=== PATIENT | male | born 1960 | race Caucasian/White ===

== ENCOUNTER 2016-07-14 09:32 | Outpatient (CLI) | payer OTHER ==
[2016-07-14 12:31] LABS: #Basophils 0.1 thou/uL (0.0-0.2); #Eosinphils 0.4 thou/uL (0.0-0.7); #Lymphocytes 2.4 thou/uL (1.20-3.40); #Monocytes 0.6 thou/uL (0.11-0.59); #Neutrophils 4.3 thou/uL (1.40-6.50); %Basophils 0.9 % (0.0-1.0); %Eosinophils 4.8 % (0.0-10.0); %Monocytes 7.9 % (0.0-10.0); Mean Platelet Volume 8.5 fL (7.4-10.4); Red Blood Cell (RBC) Count 5.31 mill/uL (4.70-6.10); White Blood Cell (WBC) Count 7.8 thou/uL (4.8-10.8)
[2016-07-14 12:48] LABS: ALT (SGPT) 55 U/L (0-55); AST (SGOT) 39 U/L (5-34); Alkaline Phosphatase 45 U/L (40-150); Anion Gap 19 mmol/L (10-20); BUN (Urea Nitrogen) 13 mg/dL (8.4-25.7); Bilirubin, Total 0.6 mg/dL (0.2-1.2); Calc. Creatinine Clearance 0 mL/min (70-130); Calcium 9.7 mg/dL (7.8-10.44); Carbon Dioxide 22 mmol/L (22-29); Chloride 100 mmol/L (98-107); Estimated GFR-MDRD 56; Globulin 2.7 g/dL (2.4-3.5); Protein, Total 7.1 g/dL (6.0-8.3)
[2016-07-14 13:10] LABS: Hemoglobin A1c 9.6 % (4.0-6.0)
[2016-07-14 13:25] LABS: Bilirubin Negative (Negative); Blood, Urine Negative (Negative); Glucose, Urine (Dipstick) Negative (Negative); Ketone, Urine Negative (Negative); Nitrite Negative (Negative); Protein, Urine (Dipstick) 100 mg/dL (Neg-Trace); Urobilinogen 0.2 mg/dL (0.2-1.0)
[2016-07-14 13:59] LABS: Bacteria/HPF 2+ HPF (None Seen); RBC/HPF None Seen HPF (0-3); Squamous Epithelial 0-3 HPF (0-3); WBC/HPF 0-3 HPF (0-3)
[2016-07-14 18:33] LABS: Microalbumin Urine 23.9 mg/dL (0.5-50.0)
== END 2016-07-14 09:33 | disposition home or self-care (01) ==
LOC: NAVSJIPCSP 09:32
PROVIDERS: ATTEND Internal Medicine
DX: Z12.5 Encounter for screening for malignant neoplasm of prostate (principal); E78.5 Hyperlipidemia, unspecified; I11.9 Hypertensive heart disease without heart failure; E11.40 Type 2 diabetes mellitus with diabetic neuropathy, unspecified; Z79.899 Other long term (current) drug therapy
CPT/HCPCS: 36415; 80053; 80061; 81003; 81015; 82043; 83036; 85025; G0103

== ENCOUNTER 2016-10-21 08:25 | Outpatient (CLI) | payer OTHER ==
[2016-10-21 12:40] LABS: Hemoglobin A1c 7.4 % (4.0-6.0)
[2016-10-21 13:01] LABS: Cardiac Risk 6.6 (Less than 4.5); Cholesterol 145 mg/dl (< 200 Desired); HDL Cholesterol 22 mg/dL (>60 Neg Risk); Triglycerides 441 mg/dL (Less than 150)
== END 2016-10-21 08:26 ==
LOC: NAVSJIPCSP 08:25
PROVIDERS: ATTEND Internal Medicine
DX: E78.5 Hyperlipidemia, unspecified (principal); E11.40 Type 2 diabetes mellitus with diabetic neuropathy, unspecified; Z79.899 Other long term (current) drug therapy
CPT/HCPCS: 36415; 80061; 83036

== ENCOUNTER 2017-01-24 10:22 | Outpatient (CLI) | payer OTHER ==
[2017-01-24 12:51] LABS: Hemoglobin A1c 9.5 % (4.0-6.0)
[2017-01-24 13:08] LABS: Cardiac Risk 6.1 (Less than 4.5); Cholesterol 158 mg/dl (< 200 Desired); HDL Cholesterol 26 mg/dL (>60 Neg Risk); Triglycerides 594 mg/dL (Less than 150)
== END 2017-01-24 10:23 | disposition home or self-care (01) ==
LOC: NAVSJIPCSP 10:22
PROVIDERS: ATTEND Internal Medicine
DX: E11.9 Type 2 diabetes mellitus without complications (principal); I11.9 Hypertensive heart disease without heart failure; E78.5 Hyperlipidemia, unspecified
CPT/HCPCS: 36415; 80061; 83036

== ENCOUNTER 2019-02-06 23:47 | Emergency (ER) | payer OTHER ==
[2019-02-07] MEDS ORDERED: Sodium Chloride 0.9% 1,000 ML ONE (00:19)
[2019-02-07 00:20] LABS: #Basophils 0.1 thou/uL (0.0-0.2); #Eosinphils 0.2 thou/uL (0.0-0.7); #Lymphocytes 2.4 thou/uL (1.20-3.40); #Monocytes 0.9 thou/uL (0.11-0.59); #Neutrophils 8.8 thou/uL (1.40-6.50); %Eosinophils 1.7 % (0.0-10.0); %Lymphocytes 19.4 % (21.0-51.0); %Neutrophils 70.9 % (42.0-75.0); Hemoglobin 15.1 g/dL (14.0-18.0); Mean Corpuscular HGB CONC 32.1 g/dL (32.0-36.0); Mean Corpuscular Hemoglobin 26.3 pg (27.0-31.0); Mean Corpuscular Volume 81.9 fL (78.0-98.0); Mean Platelet Volume 7.6 fL (7.4-10.4); Platelet Count 260 thou/uL (130-400); RBC Distribution Width 13.7 % (11.5-14.5); Red Blood Cell (RBC) Count 5.73 mill/uL (4.70-6.10); White Blood Cell (WBC) Count 12.4 thou/uL (4.8-10.8)
[2019-02-07 00:39] LABS: ALT (SGPT) 44 U/L (8-55); AST (SGOT) 25 U/L (5-34); Albumin 4.5 g/dL (3.5-5.0); Alkaline Phosphatase 45 U/L (40-150); Anion Gap 18 mmol/L (10-20); BUN (Urea Nitrogen) 19 mg/dL (8.4-25.7); Bilirubin, Total 0.3 mg/dL (0.2-1.2); Calc. Creatinine Clearance 0 mL/min (70-130); Calcium 10.1 mg/dL (7.8-10.44); Carbon Dioxide 20 mmol/L (22-29); Chloride 102 mmol/L (98-107); Estimated GFR-MDRD 50; Globulin 3.1 g/dL (2.4-3.5); Glucose 127 mg/dL (70-105); Potassium 4.3 mmol/L (3.5-5.1); Protein, Total 7.6 g/dL (6.0-8.3); Sodium 136 mmol/L (136-145)
[2019-02-07 01:22] LABS: Bilirubin Negative (Negative); Blood, Urine Small (Negative); Clarity Clear (Clear); Glucose, Urine (Dipstick) Negative (Negative); Leukocyte Negative (Negative); Nitrite Negative (Negative); Protein, Urine (Dipstick) 100 mg/dL (Neg-Trace); Urobilinogen 0.2 mg/dL (Less than 2)
[2019-02-07 01:24] LABS: Bacteria/HPF None Seen HPF (None Seen); Squamous Epithelial 0-3 HPF (0-3); WBC/HPF None Seen HPF (0-3)
[2019-02-07 05:38] LABS: Lactic Acid 1.7 mmol/L (0.5-2.2)
--- NOTE | 2019-02-07 07:36 | CT ---
PRELIMINARY REPORT/[facility]/EMERGENCY AFTER HOURS PROCEDURE PROCEDURE INFORMATION: Exam: CT Head Without Contrast Exam date and time: 02/07/2019 12:33 AM Clinical history: 58 years old, male; Condition or disease; Other: Hypoglycemic; Patient HX: Blood sugar dropped to 23. TECHNIQUE: Imaging protocol: Computed tomography of the head without contrast. COMPARISON: No relevant prior studies available. FINDINGS: Limitations: Hardening artifacts. Brain: Normal. No hemorrhage. Unremarkable white matter. No mass effect. Ventricles: Normal. No ventriculomegaly. Bones/joints: Unremarkable. No acute fracture. Sinuses: Visualized sinuses are unremarkable. No fluid levels. Mastoid air cells: Visualized mastoid air cells are well aerated. Soft tissues: Unremarkable. IMPRESSION: No acute intracranial process. Thank you for allowing us to participate in the care of your patient. Dictated and Authenticated by: Sheridan Bangura DO 02/07/2019 12:55 AM Central Time ([place] & [place]) FINAL REPORT HEAD CT WITHOUT CONTRAST: Date: 02/07/2019 COMPARISON: None HISTORY: Hypoglycemia FINDINGS: I agree with the preliminary [facility] report. No intracranial hemorrhage, midline shift, mass e ffect, or ventricular enlargement. IMPRESSION: No acute findings. Code QA. Transcribed Date/Time: 02/07/2019 8:04 AM
== END 2019-02-07 06:12 | disposition home or self-care (01) ==
LOC: NAV ERS 23:47
DX: E11.649 Type 2 diabetes mellitus with hypoglycemia without coma (principal); I10 Essential (primary) hypertension; R74.0 Nonspecific elevation of levels of transaminase and lactic acid dehydrogenase [LDH]; E78.5 Hyperlipidemia, unspecified; Z79.4 Long term (current) use of insulin; Z79.899 Other long term (current) drug therapy; Z79.82 Long term (current) use of aspirin
CPT/HCPCS: 36415; 36416; 70450; 80053; 81003; 81015; 83605; 84484; 85025; 93005; 96360; J7050

== ENCOUNTER 2019-07-15 11:37 | Outpatient (CLI) | payer OTHER ==
--- NOTE | 2019-07-15 12:04 | RAD ---
Cervical spine 5 views HISTORY: Neck pain. FINDINGS: Vertebral body heights are maintained. Disc space narrowing and minimal degenerative retrol isthesis at the C3-4 level. Cervicothoracic junction not well-seen on the swimmer's view. It is intact on the frontal and oblique views. Mild osteophytosis throughout the facets. No acute fracture, dislocation, or aggressive osseous erosions. Odontoid process not well seen on fro ntal views. Calcification over the aortic arch and right carotid bifurcation. IMPRESSION: Osseous degenerative changes cervical spine. No acute osseous abnormalities are demonstra christiano. Atherosclerosis.
== END 2019-07-15 11:38 | disposition home or self-care (01) ==
LOC: NAV RAD 11:37
PROVIDERS: ATTEND Internal Medicine
DX: S16.1XXA Strain of muscle, fascia and tendon at neck level, initial encounter (principal); M47.812 Spondylosis without myelopathy or radiculopathy, cervical region; I65.21 Occlusion and stenosis of right carotid artery; I70.0 Atherosclerosis of aorta
CPT/HCPCS: 72050